=== PATIENT | female | born 1930 | race Caucasian/White ===

== ENCOUNTER 2019-04-26 11:50 | Emergency (ER) | payer MEDICARE, BC ==
[~2019-04-26] VITALS: Ht 165.1 cm; Wt 90.9 kg
[~2019-04-26 11:50] MED LIST: ABILIFY 10MG TA10 MG PO; ABILIFY2 MG PO; ASPIRIN E.C. 8181 MG PO; ATIVAN1 MG PO; B COMPLEX & B121 TAB; CALCIUM + D 5001 TAB PO; CALCIUM + D 6001 TA1 PO; DILTIAZEM120 MG PO; FOSAMAX 70MG TA70 MG PO; HYZAAR 25 MG-101 TAB PO; NORCO 325 MG-51 TAB PO; PLENDIL10 MG PO; PROZAC 10MG10 MG PO; REMERON30 MG PO; SINGULAIR10 MG PO; TOPROL XL100 MG PO; TRIAMCINOLONE0.1% TP; ZOCOR20 MG PO
[2019-04-26 12:06] VITALS: TEMP 99.6
[2019-04-26 12:47] LABS: BASO % 0.1 % (0.0-2.0); GRAN # 11.3 (1.4-6.5); GRAN % 80.7 % (42.2-75.2); LYMPH # 1.3 (1.2-3.4); LYMPH % 9.2 % (20.0-51.0); MEAN CELL VOLUME 102 fl (80.0-100.0); MEAN CORPUSCULAR HGB CONC 32 g/dl (33.0-37.0); MEAN PLATELET VOLUME 10.6 fl (7.4-10.4); MONO # 1.3 (0.1-0.6); MONO % 9.5 % (1.7-9.3); PLATELET COUNT 229 K/mm3 (130-400); RED BLOOD COUNT 2.83 M/mm3 (4.10-5.30); REDCELL DISTRIBUTION WIDTH-CV 13.4 % (11.5-14.5)
[2019-04-26 12:48] LABS: HEMATOCRIT 28.9 % (37.0-47.0); HEMOGLOBIN 9.2 g/dl (12.5-16.0); MEAN CORPUSCULAR HEMOGLOBIN 33 pg (27.0-31.0)
[2019-04-26 12:56] LABS: BILIRUBIN,TOTAL 0.6 mg/dL (0.0-1.0); CREATININE, serum 1.36 (0.52-1.25); POTASSIUM 4.1 mmol/L (3.4-5.0); TOTAL PROTEIN 6.3 gm/dL (6.4-8.2)
[2019-04-26 13:05] LABS: TROPONIN-I 0.308 ng/mL (0.000-0.035)
[2019-04-26 13:08] LABS: C-REACTIVE PROTEIN 17.8 mg/dL (0.0-0.9)
[2019-04-26 13:34] LABS: ARTERIAL BLD GAS O2 SATURATION 95.5 % (92-100); ARTERIAL BLD GAS TCO2 CT 25.7; ARTERIAL BLOOD GAS BASE EXCESS -0.1 (-2-2); ARTERIAL BLOOD GAS HCO3 24.5 meq/L (22-26); ARTERIAL BLOOD GAS PCO2 39.7 mmHg (35-45); ARTERIAL BLOOD GAS PO2 86.3 mmHg (80-100); ARTERIAL BLOOD GAS pH 7.41 (7.35-7.45)
[2019-04-26 14:48] LABS: COLLECTION METHOD CLEAN CATCH
[2019-04-26 14:55] LABS: MUCOUS Present /lpf; PH 5 (5-8); SQUAMOUS EPITHELIAL 0-2 /hpf; URINE APPEARANCE Hazy; URINE BACTERIA Rare /hpf; URINE BILIRUBIN Negative (NEGATIVE); URINE BLOOD 2+ (NEGATIVE); URINE COLOR Yellow; URINE GLUCOSE Negative (NEGATIVE); URINE KETONE Negative (NEGATIVE); URINE LEUKOCYTE ESTERASE 2+ (NEGATIVE); URINE NITRATE Negative (NEGATIVE); URINE PROTEIN(semi-quant) Negative (NEGATIVE); URINE UROBILINOGEN Negative (NEGATIVE)
[2019-04-26 15:55] VITALS: BP 169/66; PULSE 89
== END 2019-04-26 15:55 | disposition short-term general hospital (02) ==
LOC: COL.ER 11:50
PROVIDERS: Family Medicine
DX: I63.9 Cerebral infarction, unspecified (principal); J18.9 Pneumonia, unspecified organism
CPT/HCPCS: A4216; J0692; J3370; J7030; J7050

== ENCOUNTER 2019-05-02 12:22 | Inpatient (IN) | payer MEDICARE, BC ==
[~2019-05-02] VITALS: Ht 157.5 cm; Wt 80.9 kg
[2019-05-02] VITALS (115 sets, daily range): BP systolic 107–145; BP diastolic 41–66; PULSE 76–89; TEMP 97.8–98.8; O2SAT 88–99
[2019-05-02 13:48] LABS: MEAN CELL VOLUME 104 fl (80.0-100.0); MEAN CORPUSCULAR HGB CONC 32 g/dl (33.0-37.0); PLATELET COUNT 308 K/mm3 (130-400); RED BLOOD COUNT 1.67 M/mm3 (4.10-5.30); REDCELL DISTRIBUTION WIDTH-CV 14.9 % (11.5-14.5)
[2019-05-02 13:51] LABS: HEMOGLOBIN 5.5 g/dl (12.5-16.0); MEAN CORPUSCULAR HEMOGLOBIN 33 pg (27.0-31.0)
[2019-05-02 13:52] LABS: HEMATOCRIT 17.3 % (37.0-47.0)
[2019-05-02 13:59] LABS: INR 1.3 (0.8-3.0); PROTHROMBIN TIME 15.4 SECONDS (9.7-12.8)
[2019-05-02 14:02] LABS: ALBUMIN 2.2 gm/dL (3.5-5.0); BILIRUBIN,TOTAL 0.5 mg/dL (0.0-1.0); CALCIUM 7.9 mg/dL (8.4-10.2); CREATININE, serum 0.82 (0.52-1.25); POTASSIUM 3.5 mmol/L (3.4-5.0); TOTAL PROTEIN 4.6 gm/dL (6.4-8.2)
[2019-05-02 14:09] LABS: RETIC # 0.13 M/mm3 (0.02-0.16); RETIC % 7.9 % (0.5-3.52)
[2019-05-02 14:13] LABS: TROPONIN-I 0.03 ng/mL (0.000-0.035)
[2019-05-02 14:21] LABS: BAND 5 % (0-10); EOSINOPHIL 1 % (0-4); LYMPHOCYTE 2 % (20.0-51.0); NEUTROPHILS 90 % (42.0-75.2); NUCLEATED RED BLOOD CELL 11 (0-6)
[2019-05-02 14:22] LABS: ANISOCYTOSIS 1+; HYPOCHROMIA 1+; POLYCHROMASIA 1+
[2019-05-02 14:23] LABS: PLATELET ESTIMATE NORMAL (NORMAL)
[2019-05-02 14:24] LABS: CORRECTED WBC 14.4 K/mm3
--- NOTE | 2019-05-02 14:31 | NUR ---
RECEIVED REPORT FROM ER NURSEFREEDOM.
[2019-05-02] MEDS ORDERED: REMERON 15M15 MG/TA1 PO (14:44)
[2019-05-02] MEDS ORDERED: COZAAR100 MG PO (14:45)
[2019-05-02] MEDS ORDERED: SARAFEM10 MG PO (14:46)
[2019-05-02] MEDS ORDERED: ABILIFY2 MG PO (14:49)
--- NOTE | 2019-05-02 14:53 | NUR ---
PATIENT ARRIVED TO ICU ROOM 1. PATIENT PLACED ON MONITORS AND VITAL SIGNS OBTAINED. SKIN ASSESSED. PATIENT ARRIVES WITH BRUISES TO RIGHT FOOT AND ANKLE WELL LEFT GNOSTICISM AREA. THERE IS A DRESSING EXTENDING FROM MID-CALF TO LOWER THIGH FROM PREVIOUS LEFT OPEN FEMUR FRACTURE. PATIENT IS WEARING GLASSES AND ALSO ARRIVES WITH A KNITTED BLANKET AND LIFT SLING.
[2019-05-02] MEDS ORDERED: ATIVAN 1MG T1 MG/TAB PO (15:02)
[2019-05-02] MEDS ORDERED: FOSAMAX 70MG TA70 MG PO (15:02)
[2019-05-02] MEDS ORDERED: CORDARONE200 MG/TAB PO (15:03)
[2019-05-02] MEDS ORDERED: TYLENOL 325MG325 MG PO (15:03)
[2019-05-02] MEDS ORDERED: NORVASC 10MG10 MG PO (15:03)
[2019-05-02] MEDS ORDERED: LEADER CLE17 GM/Dose PO (15:04)
[2019-05-02] MEDS ORDERED: PLAVIX 75MG TAB75 MG PO (15:04)
[2019-05-02] MEDS ORDERED: LIPITOR 40MG TA40 MG PO (15:04)
[2019-05-02] MEDS ORDERED: ALDACTONE 25MG25 M1 PO (15:05)
[2019-05-02] MEDS ORDERED: LOVENOX 4040 MG/0.4 SQ (18:33)
--- NOTE | 2019-05-02 19:47 | NUR ---
RECEIVED REPORT FROM LEEANN AND MATTIE JOHNSON.
--- NOTE | 2019-05-02 20:00 | NUR ---
PATIENT WAS ALERT WHEN I CAME ON SHIFT. ASSESSMENT COMPLETED AT THIS TIME. PATIENT WAS NOT ABLE TO ANSWER ALL MY QUESTIONS REGARDING ORIENTATION QUESTIONS. WAS ABLE TO FOLLOW COMMMANDS. PATIENT DENIED ANY PAIN. WILL CONTINUE TO MONITOR PATIENT AT THIS TIME. LINES AND MEDICATIONS VARIFIED.
[2019-05-03] VITALS (414 sets, daily range): BP systolic 116–178; BP diastolic 46–62; PULSE 71–92; TEMP 97.5–98.9; O2SAT 77–100
[2019-05-03 00:20] LABS: HEMATOCRIT 24.7 % (37.0-47.0)
[2019-05-03 00:23] LABS: HEMOGLOBIN 7.9 g/dl (12.5-16.0)
[2019-05-03 05:04] LABS: BASO % 0.2 % (0.0-2.0); EOS # 0.3 (0.0-0.7); EOS % 1.9 % (0-4.0); GRAN # 11.2 (1.4-6.5); GRAN % 76.5 % (42.2-75.2); HEMATOCRIT 25.6 % (37.0-47.0); HEMOGLOBIN 8.2 g/dl (12.5-16.0); LYMPH # 1.6 (1.2-3.4); MEAN CELL VOLUME 100 fl (80.0-100.0); MEAN CORPUSCULAR HEMOGLOBIN 32 pg (27.0-31.0); MEAN CORPUSCULAR HGB CONC 32 g/dl (33.0-37.0); MONO # 1.3 (0.1-0.6); PLATELET COUNT 234 K/mm3 (130-400); RED BLOOD COUNT 2.57 M/mm3 (4.10-5.30); REDCELL DISTRIBUTION WIDTH-CV 16.9 % (11.5-14.5)
[2019-05-03 05:11] LABS: CALCIUM 7.6 mg/dL (8.4-10.2); CREATININE, serum 0.84 (0.52-1.25); POTASSIUM 3.5 mmol/L (3.4-5.0)
--- NOTE | 2019-05-03 07:30 | NUR ---
GAVE REPORT TO MATTIE GLEASON.
--- NOTE | 2019-05-03 07:30 | NUR ---
Report recieved from MATTIE Scott.
--- NOTE | 2019-05-03 08:30 | NUR ---
Dr. Burgess rounds at this time. Orders as entered [facility]PO[facility].
--- NOTE | 2019-05-03 10:51 | NUR ---
Dr. Marsh rounds at this time. Orders as entered [facility]POE.
--- NOTE | 2019-05-03 12:40 | NUR ---
Patient transported to surgical room 342 with all belongings and chart sent with. Prior report called to nurse. Care completed.
--- NOTE | 2019-05-03 18:19 | NUR ---
Patient arrived to floor from ED via WC with PT to help with transfer. Patient is alert and oriented, answers questions appropriately. Left leg has incision closed with lin and ROSANA. Incision is well approximated, no indication of swelling, drainage, or redness. Left hip is bruised significantly. Bruising is also visible on left side of face and left arm from fall on 04/22. Patient has significant excoriation in her perineal area. Area is very red but still blanchable and is peeling. Area cleaned carefully and moisture barrier applied. Assisted patient to order dinner. Patient denies further needs at this time, call light within reach.
[2019-05-04 03:32] VITALS: BP 149/67; PULSE 83; TEMP 98.7
[2019-05-04 04:48] LABS: MEAN CELL VOLUME 99 fl (80.0-100.0); MEAN CORPUSCULAR HGB CONC 32 g/dl (33.0-37.0); MEAN PLATELET VOLUME 9.9 fl (7.4-10.4); PLATELET COUNT 230 K/mm3 (130-400)
[2019-05-04 05:01] LABS: HEMATOCRIT 23.8 % (37.0-47.0); HEMOGLOBIN 7.6 g/dl (12.5-16.0); MEAN CORPUSCULAR HEMOGLOBIN 32 pg (27.0-31.0)
[2019-05-04 05:08] LABS: CALCIUM 7.4 mg/dL (8.4-10.2); CREATININE, serum 0.69 (0.52-1.25); POTASSIUM 3.5 mmol/L (3.4-5.0)
--- NOTE | 2019-05-04 05:10 | NUR ---
PT RESTING QUIETLY MOST OF NIGHT. ATIVAN AT [facility] LAB DRAWN PER PICC LINE THIS A.M.
[2019-05-04 05:54] LABS: ANISOCYTOSIS 1+; BAND 9 % (0-10); EOSINOPHIL 2 % (0-4); HYPOCHROMIA 1+; LYMPHOCYTE 6 % (20.0-51.0); METAMYELOCYTE 1 % (0-0); NEUTROPHILS 73 % (42.0-75.2); PLATELET ESTIMATE NORMAL (NORMAL)
[2019-05-04 05:56] LABS: POLYCHROMASIA 1+
[2019-05-04 08:04] VITALS: BP 165/65; PULSE 85; TEMP 98.5
[2019-05-04 12:35] VITALS: BP 147/58; PULSE 67; TEMP 99
--- NOTE | 2019-05-04 15:10 | NUR ---
Plans to return home independently. Assess: Sw met with patient in room. Patient reports that she live [place]son in [place]. Patient indicated that she uses [facility] for Rx, has dtrs that check in on her.Patient reports that she has a heart monitor. Patient reports that her DTR is Maliha Colon and she is DPOA. Patient states she can not remember phone number. PCP is Dr. Zhu. Denies any other DME, will ahve family transport home or drive herself. Action: Edcuated on services available to her. Patient declined home health care.
[2019-05-04 15:57] VITALS: BP 143/54; PULSE 71; TEMP 98.2
--- NOTE | 2019-05-04 17:42 | NUR ---
Patient has been alert and oriented most of the day. Patient does have some mild confusion this evening. Incisions to her left leg remain with lin intact and well approximated, no indication of redness or drainage. Zora area remains ecoriated but is blanchable. Skin is blistered and peeling in places but no open areas found. Area is washed with soap and water and barrier cream applied with every incontinent episode. PICC line in place to RUE, flushes well. Patient has had no complaints of pain, denies needs at this time, bed alarm on, call light within reach.
[2019-05-04 17:57] LABS: COLLECTION METHOD CLEAN CATCH
[2019-05-04 18:09] LABS: MUCOUS Present /lpf; PH 6 (5-8); SQUAMOUS EPITHELIAL 0-2 /hpf; URINE APPEARANCE Hazy; URINE BACTERIA Rare /hpf; URINE BILIRUBIN Negative (NEGATIVE); URINE BLOOD 2+ (NEGATIVE); URINE COLOR Yellow; URINE GLUCOSE Negative (NEGATIVE); URINE KETONE Negative (NEGATIVE); URINE LEUKOCYTE ESTERASE Trace (NEGATIVE); URINE NITRATE Negative (NEGATIVE); URINE PROTEIN(semi-quant) Negative (NEGATIVE)
[2019-05-04 20:27] VITALS: BP 158/60; PULSE 73; TEMP 98.7
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
[2019-05-05 00:33] VITALS: BP 167/62; PULSE 66; TEMP 98.2
[2019-05-05 02:45] VITALS: BP 151/50; PULSE 66; TEMP 98.1
[2019-05-05 07:54] VITALS: BP 152/53; PULSE 64; TEMP 98.2
--- NOTE | 2019-05-05 08:00 | NUR ---
Patient in bed resting. Alert and Oriented x 3. However patient is forgetful. Patient has incision with lin, edges well approximated to left knee and lateral thigh. Ecchimosis noted to left lateral thigh and hip. Bruising also noted to left oriental orthodox and arm from previous fall. Redness noted to perineal area. Area cleaned and moisture barrier applies. PICC line to JESUS with out complications. Denies pain or further needs at this time. Patient occasionally incontinent, but will occassinally call to use bedpan. Edema noted to BLE +2 pitting. Denies pain or further needs at this time.
[2019-05-05 09:27] LABS: BASO % 0.3 % (0.0-2.0); EOS # 0.3 (0.0-0.7); EOS % 1.9 % (0-4.0); GRAN # 10.4 (1.4-6.5); LYMPH # 1.3 (1.2-3.4); LYMPH % 9.8 % (20.0-51.0); MEAN CELL VOLUME 101 fl (80.0-100.0); MEAN CORPUSCULAR HGB CONC 32 g/dl (33.0-37.0); MEAN PLATELET VOLUME 9.8 fl (7.4-10.4); MONO # 1.1 (0.1-0.6); MONO % 8.1 % (1.7-9.3); PLATELET COUNT 287 K/mm3 (130-400); RED BLOOD COUNT 2.55 M/mm3 (4.10-5.30); REDCELL DISTRIBUTION WIDTH-CV 16.9 % (11.5-14.5)
[2019-05-05 09:33] LABS: CALCIUM 7.9 mg/dL (8.4-10.2); CREATININE, serum 0.7 (0.52-1.25); POTASSIUM 3.5 mmol/L (3.4-5.0)
[2019-05-05 09:35] LABS: HEMATOCRIT 25.7 % (37.0-47.0); HEMOGLOBIN 8.1 g/dl (12.5-16.0); MEAN CORPUSCULAR HEMOGLOBIN 32 pg (27.0-31.0)
[2019-05-05 11:13] VITALS: BP 143/53; PULSE 62; TEMP 97.9
--- NOTE | 2019-05-05 11:40 | NUR ---
BRITTANEY met with the patient and patient's niece, Sal (ph#[phone]), to review discharge plan. The patient has been residing at [facility] for a skilled stay prior to hospitalization. The patient reports that she would like to return back there upon discharge. BRITTANEY presented and explained the patient choice form to the patient. The patient verbalized understanding, signed, and she was provided a copy. BRITTANEY contacted and faxed updates to Brandon at [facility]. BRITTANEY to continue to follow.
[2019-05-05 12:35] VITALS: BP 142/53; PULSE 63; TEMP 98.2
--- NOTE | 2019-05-05 13:29 | NUR ---
The patient is to discharge today, 05/05, back to [facility] for a skilled stay. Transportation was set for around [id number], via [facility]. BRITTANEY informed the patient, patient's nurse, and attempted to contact the patient's daughter. SW left a voicemail. The patient and patient's nurse were both in agreeance. SW presented and explained the IM form to the patient. The patient verbalized understanding, signed, and she was provided a copy. No additional needs at this time.
[2019-05-05] MEDS ORDERED: PROTONIX 40MG T40 MG PO (14:16)
[2019-05-05] MEDS ORDERED: ATIVAN 1MG T1 MG/TAB PO (14:20)
[2019-05-05 14:56] VITALS: BP 142/53; PULSE 63; TEMP 98.2
--- NOTE | 2019-05-05 16:35 | NUR ---
Patient discharging to via [facility]. Assisted patient to dress. Patient to wheelchair by lift with x3 assist. Denies pain to left knee unless moved. Denies further needs at this time. Contacted [facility] for report. All questions answered. Patient out by wheelchair. Denies further needs at this time.
== END 2019-05-05 16:40 | DRG 378 ==
LOC: COL.ER 12:22 → ICU 14:10 → SURG 05-03 12:49
PROVIDERS: Emergency Medicine; Internal Medicine Gastroenterology; Nurse Practitioner Family
PROC: 02HV33Z Insertion of Infusion Device into Superior Vena Cava, Percutaneous Approach (ICD-10-PCS; 2019-05-02)
PROC: 0DJ08ZZ Inspection of Upper Intestinal Tract, Via Natural or Artificial Opening Endoscopic (ICD-10-PCS; principal; 2019-05-02 16:00)
DX: K26.0 Acute duodenal ulcer with hemorrhage (principal); D62 Acute posthemorrhagic anemia; Z86.73 Personal history of transient ischemic attack (TIA), and cerebral infarction without residual deficits; I10 Essential (primary) hypertension; D72.829 Elevated white blood cell count, unspecified; K26.4 Chronic or unspecified duodenal ulcer with hemorrhage; I48.91 Unspecified atrial fibrillation
CPT/HCPCS: 99223-AI; 99233-AI; 99239; C1751; J0881; J2704; J2916; P9016

== ENCOUNTER → 2019-05-12 | Outpatient (CLI) | payer MEDICARE, BC ==
[~2019-05-12] MED LIST changes: +ALDACTONE 25MG25 M1 PO; +ATIVAN 1MG T1 MG/TAB PO; +CORDARONE200 MG/TAB PO; +COZAAR100 MG PO; +LEADER CLE17 GM/Dose PO; +LIPITOR 40MG TA40 MG PO; +LOVENOX 4040 MG/0.4 SQ; +NORVASC 10MG10 MG PO; +PLAVIX 75MG TAB75 MG PO; +PROTONIX 40MG T40 MG PO; +REMERON 15M15 MG/TA1 PO; +SARAFEM10 MG PO; +TYLENOL 325MG325 MG PO
[2019-05-12 15:39] LABS: BASO # 0.1 (0.0-0.2); BASO % 0.6 % (0.0-2.0); EOS # 0.2 (0.0-0.7); EOS % 2.8 % (0-4.0); GRAN # 6.4 (1.4-6.5); LYMPH # 1.1 (1.2-3.4); LYMPH % 13.1 % (20.0-51.0); MEAN CELL VOLUME 103 fl (80.0-100.0); MEAN CORPUSCULAR HGB CONC 31 g/dl (33.0-37.0); MEAN PLATELET VOLUME 9.4 fl (7.4-10.4); MONO # 0.6 (0.1-0.6); PLATELET COUNT 426 K/mm3 (130-400); RED BLOOD COUNT 2.94 M/mm3 (4.10-5.30); REDCELL DISTRIBUTION WIDTH-CV 16.8 % (11.5-14.5)
[2019-05-12 15:40] LABS: HEMATOCRIT 30.2 % (37.0-47.0); HEMOGLOBIN 9.3 g/dl (12.5-16.0); MEAN CORPUSCULAR HEMOGLOBIN 32 pg (27.0-31.0)
[2019-05-12 15:49] LABS: CALCIUM 8.5 mg/dL (8.4-10.2); CREATININE, serum 1.11 (0.52-1.25); POTASSIUM 4.4 mmol/L (3.4-5.0)
== END ==
LOC: ZLAB.STJ 14:15
PROVIDERS: Family Medicine
DX: I10 Essential (primary) hypertension (principal)

== ENCOUNTER → 2019-07-19 | Outpatient (CLI) | payer MEDICARE, BC ==
[~2019-07-19] MED LIST changes: +CALCIUM-500 5001 CTB PO; +ROXICODONE 55 MG/TAB PO
[2019-07-19 08:47] LABS: COLLECTION METHOD CATHETER
[2019-07-19 09:13] LABS: MUCOUS Present /lpf; PH 5 (5-8); URINE APPEARANCE Hazy; URINE BACTERIA Rare /hpf; URINE BILIRUBIN Negative (NEGATIVE); URINE BLOOD Negative (NEGATIVE); URINE COLOR Yellow; URINE GLUCOSE Negative (NEGATIVE); URINE KETONE Negative (NEGATIVE); URINE LEUKOCYTE ESTERASE 2+ (NEGATIVE); URINE NITRATE Positive (NEGATIVE); URINE PROTEIN(semi-quant) Negative (NEGATIVE); URINE UROBILINOGEN Negative (NEGATIVE)
== END ==
LOC: ZLAB.STJ 07:06
PROVIDERS: Family Medicine
DX: N39.0 Urinary tract infection, site not specified (principal)

== ENCOUNTER → 2019-09-19 | Outpatient (CLI) | payer MEDICARE, BC ==
[2019-09-19 12:11] LABS: ALBUMIN 3.6 gm/dL (3.5-5.0); BILIRUBIN UNCONJUGATED 0.1 mg/dL (0.0-1.1); BILIRUBIN,DIRECT 0.1 mg/dL (0.0-0.4); BILIRUBIN,TOTAL 0.2 mg/dL (0.0-1.0); CALCIUM 8.6 mg/dL (8.4-10.2); CREATININE, serum 1.1 (0.52-1.25); TOTAL PROTEIN 6.7 gm/dL (6.4-8.2)
[2019-09-19 12:27] LABS: CHOLESTEROL RISK RATIO 2.6
[2019-09-19 12:57] LABS: THYROID STIMULATING HORMONE 1.26 uIU/mL (0.465-4.680)
== END ==
LOC: ZLAB.STJ 10:50
PROVIDERS: Family Medicine
DX: I10 Essential (primary) hypertension (principal)